=== PATIENT | female | born 1985 | race African-American/Black ===

== ENCOUNTER 2019-02-24 07:30 | Outpatient (RCR) | payer OTHER ==
--- NOTE | 2019-02-12 13:48 | NUR ---
Anais is a 33 year old female who was referred for a speech and language assessment secondary to stuttering. Anais reported that she has always had a mild stutter and got speech therapy as a child in school for stuttering. She has received speech therapy for stuttering twice in her adult life around 2005 and 2010. She reported that recently her stuttering has gotten worse and would like to learn strategies to improve fluency. She stated that she often avoids speaking whenever possible, which is something that she did not do in the past. Based on today's assessment, the patient presents with a mild dysfluency which moderately impacts her life and daily communication. The clinician recommends initiating speech therapy 1 x weekly for at least 4 weeks for stuttering. Addendum: 02/12/19 at 1353 by RADHA RUVALCABA Amended: Links added.
== END 2019-03-03 ==
LOC: M ST 07:30
PROVIDERS: ATTEND Physician Assistant
DX: F80.81 Childhood onset fluency disorder (principal)

== ENCOUNTER → 2019-04-08 | Outpatient (CLI) | payer OTHER ==
--- NOTE | 2019-04-08 20:33 | REP ---
ULTRASOUND LEFT BREAST: Reportedly there is a palpable lump in the left breast in the region of 6-o'clock below the nipple. Real-time sonographic evaluation of that area shows a band of dense fibroglandular tissue. No cystic or solid mass is seen. IMPRESSION: ACR 2 benign. Dense fibroglandular tissue in the region of the palpable lump in the region of 6-o'clock left breast. No cystic or solid mass. Clinical correlation and followup is recommended. A negative ultrasound should not deter biopsy if there is a clinically suspicious palpable mass present. Electronically Signed by Brandon Sanabria MD 04/13/2019 01:39 P
== END ==
LOC: M RAD 17:36
PROVIDERS: ATTEND Physician Assistant
DX: N60.32 Fibrosclerosis of left breast (principal)

== ENCOUNTER → 2019-04-09 | Outpatient (REF) | payer OTHER ==
[2019-04-10 13:46] LABS: CHLAMYDIA DNA AMPLIFICATION NEGATIVE (NEGATIVE); GC DNA AMPLIFICATION NEGATIVE (NEGATIVE)
== END ==
LOC: M SFHCLERA 18:13
PROVIDERS: ATTEND Physician Assistant
DX: N89.8 Other specified noninflammatory disorders of vagina (principal)

== ENCOUNTER → 2019-06-05 | Outpatient (CLI) | payer OTHER ==
--- NOTE | 2019-06-05 12:14 | REP ---
Bilateral mammogram and bilateral breast ultrasound: The patient is a 33-year-old female with bilateral bacteria for approximately 4 years. No palpable lumps at this time. The patient had a previous left breast ultrasound on 04/08/2019. At that time the patient reportedly had a palpable lump in the left breast at the approximate 6 o'clock location below the nipple. The prior left breast ultrasound identified. Fibroglandular tissue in the area of the palpable lump however no cysts or solid nodules were identified. Mammogram today: MLO and CC views of each breast are performed without tomosynthesis. BILATERAL SCREENING DIGITAL MAMMOGRAM WITHOUT 3D TOMOSYNTHESIS: There are no palpable abnormalities. Bilateral galactorrhea for 4 years . The Tyrer-Cuzick Score is: 21.8% . There are no comparison mammograms. There are scattered areas of fibroglandular density. There is no dominant mass, micro calcific cluster or architectural distortion that would indicate malignancy. There are no additional findings on 3D tomosynthesiss. There is no change from the prior study. Impression: BIRADS/ACR category 1 mammogram. Negative. Recommendation: Routine annual screening mammography after age 40 . For women with a Tyrer-Cuzick score greater than 20 , adjunctive annual breast MRI in addition to screening mammography is recommended. These can be performed at alternating six month intervals. This mammogram was interpreted with the aid of a FDA approved computer-aided detection system. Bilateral breast ultrasound: Ultrasonography in the retroareolar areas of each breast is performed. On ultrasound. There is no nodule, mass or cyst in the retroareolar zone of either breast. Occasional dilated ducts are identified. This is not unusual. Impression: BIRADS category one Negative bilateral retroareolar breast ultrasound. A. Negative mammogram and ultrasound reports should not delay biopsy if a dominant or clinically suspicious mass is present. B. Not all breast cancers are identified by mammography oral ultrasound. C. Adenosis and dense breasts may obscure an underlying neoplasm. Patient letter M1. Electronically Signed by Brandon Morton MD 06/05/2019 12:05 P
--- NOTE | 2019-06-05 12:15 | REP ---
Bilateral breast ultrasound: Please refer to the mammogram report this same date for the ultrasound results. The Electronically Signed by Brandon Morton MD 06/05/2019 12:06 P
== END ==
LOC: M RAD 10:21
PROVIDERS: ATTEND Family Medicine
DX: Z12.31 Encounter for screening mammogram for malignant neoplasm of breast (principal); N64.3 Galactorrhea not associated with childbirth

== ENCOUNTER → 2019-09-09 | Outpatient (REF) | payer OTHER | LOC: M SFHCLERA 19:09 | PROVIDERS: ATTEND Physician Assistant | DX: N89.8 Other specified noninflammatory disorders of vagina (principal) | CPT/HCPCS: 87070; G0463 ==